=== PATIENT | female | born 1930 | race Caucasian/White ===

== ENCOUNTER → 2016-11-30 | Emergency (ER) | payer MEDICARE, BC ==
[~2016-11-30] MED LIST: ALEVE220 MG PO; ARTIFICIAL TEAR15 M2 OPHTH; ATIVAN 0.5MG0.5 MG PO; BUMETANIDE2 MG PO; CATAPRES0.1 MG PO; CELEXA40 MG PO; CITALOPRAM10 MG/5 ML; COREG12.5 MG PO; DELTASONE5 MG PO; ESTRACE42.5 GM VAG; EXELON1 EAC1 TRANS; KEFLEX500 MG PO; NAMENDA10 MG PO; NORCO 5-325 TA1 EACH PO; ROBITUSSIN DM120 ML PO; VESICARE5 MG; VITAMIN D1000 UNI1 PO; ZYLOPRIM100 MG PO
== END | disposition disaster alternative care site (69) ==
LOC: GAMB 09:40
DX: R55 Syncope and collapse (principal)

== ENCOUNTER 2017-03-09 23:27 | Emergency (ER) | payer MEDICARE, BC ==
--- NOTE | ~2017-03-09 | ER ---
PATIENT'S NAME: GONZALO MARRERO [facility] AGE: 86 Y [address] ROOM: [place] [address] LOCATION: [facility] ADMIT DATE: 03/09/2017 ER/Outpatient Report DISCHARGE DATE: 03/10/2017 FAMILY PHYSICIAN: Antonia Hood MD ATTENDING PHYSICIAN: Harshil Braun CHIEF COMPLAINT: Fall. HISTORY OF PRESENT ILLNESS: Ms. Marrero arrives by ambulance from [place]. She supposedly fell around 5 to 5:30 p.m. According to her daughter, she fell when trying to stand from her walker. She struck her left side kind of posteriorly as well as her head and in fact into the wall. She evidently did not lose consciousness. She refused transport at that time. However, throughout the evening she has become more and more painful and thus finally agreed for transportation. EMS was called and brought her in. She is complaining of right-sided pain. It is mostly in her shoulder and neck. No medications or interventions have been employed prior to arrival. PAST MEDICAL HISTORY: Documented on the record and reviewed by me. SOCIAL HISTORY: Documented on the record and reviewed by me. MEDICATIONS: Documented on the record and reviewed by me. ALLERGIES: DOCUMENTED ON THE RECORD AND REVIEWED BY ME. REVIEW OF SYSTEMS: All systems reviewed and are negative except as noted in the HPI, though the patient is a very poor historian. Collateral information from family was obtained as well. PHYSICAL EXAMINATION: VITAL SIGNS: Blood pressure 207/96, pulse is 60, respiratory rate is 16, temperature 98.0, SpO2 is 95% on room air. Pain appears to be 5/10. GENERAL: Age-appropriate female, in no obvious pain or distress. NEUROLOGIC: The patient is awake. GCS is 14. Confused on date. No focal deficits, however. HEENT: Normocephalic, atraumatic. Nontender to palpation. No crepitus or bogginess. Eyes are PERRL. The oropharynx is clear. PATIENT'S NAME: GONZALO MARRERO [facility] AGE: 86 Y [address] ROOM: [place] [address] LOCATION: [facility] ADMIT DATE: 03/09/2017 ER/Outpatient Report DISCHARGE DATE: 03/10/2017 FAMILY PHYSICIAN: Antonia Hood MD ATTENDING PHYSICIAN: Harshil Braun NECK: Supple with some tenderness in the C-spine region, poorly localizable. HEART: Regular rate and rhythm with no murmurs. LUNGS: Clear to auscultation bilaterally. Diffuse tenderness in the right upper chest wall, nonreproducible. ABDOMEN: Soft, nontender, and nondistended. No rebound or guarding. BACK: Back is normal to inspection. There is tenderness to palpation throughout the upper spine. No thoracic or lumbar spine tenderness. No CVA tenderness. EXTREMITIES: Right upper extremity is notable for shoulder impingement, but no focal abnormalities. Left upper extremity has some contusions at the elbow, no active bleeding; no deformities, tenderness, or pain. The lower extremities are grossly unremarkable for acute pathology. SKIN: Appears to be grossly intact other than a skin tear to the left elbow which is bandaged. LABORATORY DATA AND X-RAYS: Head CT and C-spine CT are negative. CT of the chest is notable for right first rib fracture and sternal fracture, possibly acute. No other mediastinal abnormalities. Urinalysis; leukocytes 500, nitrite positive, wbc's 50 to 100, rbc's 0 to 2, epithelials 2 to 5, bacteria many, moderate wbc clumps. CMS; electrolytes without abnormality. Creatinine 1.5. GFR is 33, baseline. No appreciable hepatobiliary abnormalities. CBC; white count of 16.2 with neutrophilia, hemoglobin is 12.1, platelets of 179. INR is 1. EKG; sinus rhythm, rate of 60 with normal intervals and left axis deviation. No significant abnormalities compared to prior EKG. Plain films of the right shoulder shows arthritis, no other abnormalities. Chest x-ray unremarkable per my review. IMPRESSION: 1. Fall. 2. Possibly acute versus subacute sternal and right first rib fractures with multiple healing old right-sided rib fractures. 3. Skin tear. 4. Urinary tract infection. EMERGENCY DEPARTMENT COURSE: The patient was seen and evaluated as above. Her daughter was available and collaborated the HPI. The patient's injury pattern on imaging does not fit with her mechanism. On physical exam, she is not particularly tender over the area in question for fracture of the sternum. The force required to provide this particular injury pattern is unlikely to be encountered in a ground level partial fall. I discussed this at length with the daughter. The patient is not in any acute pain right now. There is no evidence of other intrathoracic PATIENT'S NAME: GONZALO MARRERO [facility] AGE: 86 Y [address] ROOM: [place] [address] LOCATION: [facility] ADMIT DATE: 03/09/2017 ER/Outpatient Report DISCHARGE DATE: 03/10/2017 FAMILY PHYSICIAN: Antonia Hood MD ATTENDING PHYSICIAN: Harshil Braun. I explained that I do not think there is any utility for admission from that standpoint at this time and the daughter agrees. We will treat the UTI with Macrobid. Recommend close followup with PCP at this week. Return immediately if there is any new or concerning signs or symptoms. The patient remained with adequate pain control throughout her stay in the emergency department. All questions were answered, and the patient was discharged back to [place] under the care of her daughter. MD KADY MERAZ/jane /[id number] d: 03/10/1712 t: 03/15/17 1223, OUTPATIENT REPORT
[~2017-03-09 23:27] MED LIST changes: -ROBITUSSIN DM120 ML PO; -ZYLOPRIM100 MG PO
[2017-03-10 00:08] LABS: BASOPHIL % 0.2 %; EOSINOPHIL # 0.1 K/uL (0.0-0.5); EOSINOPHIL % 0.7 %; HEMATOCRIT 35.5 % (30.0-46.0); HEMOGLOBIN 12.1 g/dL (10.0-15.0); IMMATURE GRANULOCYTE # 0.1 K/uL (0.0-0.3); IMMATURE GRANULOCYTE % 0.9 %; LYMPHOCYTE # 1.7 K/uL (0.8-4.0); LYMPHOCYTE % 10.5 %; MCH 32.6 pg (27.0-34.0); MCHC 34.1 gm/dL (32.0-36.5); MCV 95.7 fl (83.0-98.0); MONOCYTE # 1.3 K/uL (0.0-1.0); MONOCYTE % 7.8 %; MPV 9.6 fl (9.4-12.4); NEUTROPHIL % 79.9 %; NRBC % 0 /100WBC (0-0.00); PLATELET COUNT 179 K/uL (150-450); RBC 3.71 M/uL (3.00-5.00); RDW-CV 13.2 % (11.9-14.6)
[2017-03-10 00:09] LABS: WBC 16.2 K/uL (4.0-11.0)
[2017-03-10 00:16] LABS: BILIRUBIN URINE NEGATIVE (NEGATIVE); BLOOD URINE 10 /UL (NEGATIVE); COLOR URINE YELLOW (YELLOW); GLUCOSE URINE NEGATIVE (NEGATIVE); KETONE URINE NEGATIVE (NEGATIVE); LEUKOCYTES URINE 500 /UL (NEGATIVE); NITRITE URINE POSITIVE (NEGATIVE); PROTEIN URINE NEGATIVE (NEGATIVE); TURBIDITY URINE 1+ (CLEAR); UROBILINOGEN URINE NORMAL (NORMAL)
[2017-03-10 00:18] LABS: INR - (THERAPEUTIC) 1.01 (0.92-1.07); PROTIME 10.6 SECONDS (9.8-11.4); PTT 27 SECONDS (25-32)
[2017-03-10 00:23] LABS: ALBUMIN 3.4 gm/dL (3.5-5.0); ANION GAP 10.8 (10.0-19.0); CALCIUM 8.6 mg/dL (8.5-10.5); CREATININE 1.5 mg/dL (0.5-1.1); POTASSIUM 3.8 mMol/L (3.7-5.1); TOTAL BILIRUBIN 0.3 mg/dL (0.0-1.5); TOTAL PROTEIN 7.1 g/dL (6.0-8.4)
[2017-03-10 00:25] LABS: RBC URINE 0-2 #/HPF (NEGATIVE); WBC URINE 50-100 #/HPF (NEGATIVE)
[2017-03-10 00:26] LABS: BACTERIA URINE MANY (NEGATIVE); MUCUS URINE 1+ (NEGATIVE); WBC CLUMPS URINE MODERATE (NEGATIVE)
[2017-05-06] MEDS ORDERED: ROBITUSSIN DM120 ML PO (14:38)
[2017-05-11] MEDS ORDERED: ZYLOPRIM100 MG PO (13:45)
== END 2017-03-10 02:38 | disposition disaster alternative care site (69) ==
LOC: GACC 23:27
PROVIDERS: Emergency Medicine
DX: S51.012A Laceration without foreign body of left elbow, initial encounter (principal); S22.31XD Fracture of one rib, right side, subsequent encounter for fracture with routine healing; I12.9 Hypertensive chronic kidney disease with stage 1 through stage 4 chronic kidney disease, or unspecified chronic kidney disease; N39.0 Urinary tract infection, site not specified; K21.9 Gastro-esophageal reflux disease without esophagitis; E78.5 Hyperlipidemia, unspecified; M19.90 Unspecified osteoarthritis, unspecified site; N18.9 Chronic kidney disease, unspecified; G30.9 Alzheimer's disease, unspecified; Z88.5 Allergy status to narcotic agent; F02.80 Dementia in other diseases classified elsewhere, unspecified severity, without behavioral disturbance, psychotic disturbance, mood disturbance, and anxiety; Z98.890 Other specified postprocedural states; Z79.899 Other long term (current) drug therapy; W18.09XA Striking against other object with subsequent fall, initial encounter

== ENCOUNTER → 2017-03-09 | Outpatient (CLI) | payer MEDICARE, BC | END | disposition disaster alternative care site (69) | LOC: GAMB 23:12 | DX: S49.91XA Unspecified injury of right shoulder and upper arm, initial encounter (principal); M25.611 Stiffness of right shoulder, not elsewhere classified; M25.511 Pain in right shoulder; R07.9 Chest pain, unspecified; W19.XXXA Unspecified fall, initial encounter | CPT/HCPCS: A0425; A0429 ==

== ENCOUNTER → 2017-03-09 | Emergency (ER) | payer MEDICARE, BC | END | disposition disaster alternative care site (69) | LOC: GAMB 17:16 | DX: R07.89 Other chest pain (principal); S51.012A Laceration without foreign body of left elbow, initial encounter; M25.522 Pain in left elbow; W19.XXXA Unspecified fall, initial encounter ==

== ENCOUNTER 2017-05-03 19:03 | Emergency (ER) | payer MEDICARE, BC ==
--- NOTE | ~2017-05-03 | ER ---
PATIENT'S NAME: GONZALO CARVER [facility] AGE: 87 Y [address] ROOM: [place] [address] LOCATION: [facility] ADMIT DATE: 05/03/2017 ER/Outpatient Report DISCHARGE DATE: 05/03/2017 FAMILY PHYSICIAN: Antonia Hood MD ATTENDING PHYSICIAN: Jairo Castellon Admission date and time documented on the medical record. I saw the patient at 1915 hours. CHIEF COMPLAINT: Ground level fall. No loss of consciousness. HISTORY OF PRESENT ILLNESS: This patient is an 87-year-old female who was walking, stepped back, and she thinks she tripped and suffered a ground level fall. She hit kind of the left side of her head in the posterior parietal occipital area and hit her left shoulder. She has pain in her head, left posterior parietal occipital area and her left shoulder. The patient was brought into the emergency room by paramedics via ambulance for evaluation. The patient did not lose consciousness. She had a pretty good recall about the whole incident. The patient did not have any seizure activity. No incontinence of stool or urine. No chest pain or shortness of breath. No abdominal pain, nausea, vomiting, diarrhea. No urinary symptomatology. Really at this point she is not having much of a headache, just some localized pain in the spot area of her scalp. There is no laceration, contusion, swelling, or abrasion. No eyes, ears, nose, throat, neck, spine pain. No recent cold, coughs, flus, fever, chills, or sweats. Denies being lightheaded or dizzy. No syncope. Other than the shoulder, no other joint or muscle swelling, redness, or pain. No skin eruptions or rash. Does have some mild dementia. No endocrine problems. No psych issues. HOME MEDICATIONS: See attached medication list. ALLERGIES: PERCOCET, MORPHINE SULFATE, CODEINE, OXYCODONE, HYDROCODONE, ACETAMINOPHEN. SOCIAL HISTORY: Nonsmoker. Occasional intake of alcohol. SIGNIFICANT PAST MEDICAL HISTORY: Hypertension, dementia, frequent falls, gastroesophageal reflux, chronic kidney disease, dyslipidemia, restless legs syndrome, lower extremity skin ulcer. PATIENT'S NAME: GONZALO CARVER [facility] AGE: 87 Y [address] 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 REVIEW OF SYSTEMS: All systems reviewed by me are negative with the exception of those discussed in the history of present illness. PHYSICAL EXAMINATION: VITAL SIGNS: Temperature 99.2, pulse 70, respirations 18, blood pressure 184/90, O2 saturation on room air was 98%. HEENT: Head, normocephalic. No abrasion, contusion, laceration, or swelling of the scalp or face. She does have a little bit of tenderness in the posterior left parietal occipital area where she hit the floor. Eyes; extraocular muscles intact. PERRL. Ears, clear TMs bilaterally. Nose, clear. Throat; clear. Mucous membranes moist. Teeth and jaw intact. NECK: Full range of motion. No tenderness. No thyromegaly or cervical adenopathy. SPINE: Nontender. No deformity. LUNGS: Clear. Good air flow. No rales, rhonchi, or wheezes. HEART: Regular. Pulses are palpable. No chest wall or ribcage pain to palpation. No deformity. ABDOMEN: Soft, nondistended, nontender. Good bowel tones. No organomegaly or abnormal masses palpable. No CVA tenderness. EXTREMITIES: No peripheral edema, cyanosis, or deformity. NEURO: Cranial nerves appeared to be intact. No lateralizing signs. The patient is awake, alert, responsive. Motor and sensory intact. SKIN: Clear. No skin eruptions or rash. LABORATORY DATA AND X-RAYS: CT scan of the head showed no intracranial bleed, midline shift, mass effect, or skull fracture. CT scan of the cervical spine showed no acute fracture or subluxation. She does have a manubrial sternal comminuted fracture that is old. There was some more displacement on the CT scan tonight. All CT scans were read by Radiology, see dictated transcribed reports. Left shoulder plain x-ray showed no fracture, dislocation, or separation. We will review x-ray with the radiologist. IMPRESSION: Ground-level fall without loss of consciousness. The patient has a bruised left shoulder and mild contusion to her left posterior parietal occipital scalp. No other injuries or abnormalities found on physical exam or x-ray study results. PLAN: The patient was discharged back to [facility]. Observation. PATIENT'S NAME: GONZALO CARVER [facility] AGE: 87 Y [address] ROOM: [place], [place] [address] LOCATION: [facility] ADMIT DATE: 05/03/2017 ER/Outpatient Report DISCHARGE DATE: 05/03/2017 FAMILY PHYSICIAN: Antonia Hood MD ATTENDING PHYSICIAN: Jairo Castellon Activity as tolerated. Continue present home medications and care. Follow up with personal physician as needed. I did discuss this with the patient. MD TESFAYE SUN/modl /[id number] d: 05/04/17 0035 t: 05/04/17 1820, OUTPATIENT REPORT
[~2017-05-03 19:03] MED LIST changes: -ROBITUSSIN DM120 ML PO; -ZYLOPRIM100 MG PO
[2017-05-06] MEDS ORDERED: ROBITUSSIN DM120 ML PO (14:38)
[2017-05-11] MEDS ORDERED: ZYLOPRIM100 MG PO (13:45)
== END 2017-05-03 20:56 | disposition disaster alternative care site (69) ==
LOC: GACC 19:03
DX: S00.03XA Contusion of scalp, initial encounter (principal); S40.012A Contusion of left shoulder, initial encounter; I12.9 Hypertensive chronic kidney disease with stage 1 through stage 4 chronic kidney disease, or unspecified chronic kidney disease; K21.9 Gastro-esophageal reflux disease without esophagitis; N18.9 Chronic kidney disease, unspecified; E78.5 Hyperlipidemia, unspecified; F03.90 Unspecified dementia, unspecified severity, without behavioral disturbance, psychotic disturbance, mood disturbance, and anxiety; Z88.5 Allergy status to narcotic agent; Z88.8 Allergy status to other drugs, medicaments and biological substances; Z98.890 Other specified postprocedural states; W01.0XXA Fall on same level from slipping, tripping and stumbling without subsequent striking against object, initial encounter

== ENCOUNTER → 2017-05-03 | Outpatient (CLI) | payer MEDICARE, BC ==
[~2017-05-03] MED LIST changes: +ROBITUSSIN DM120 ML PO; +ZYLOPRIM100 MG PO
== END | disposition disaster alternative care site (69) ==
LOC: GAMB 18:41
DX: S49.92XA Unspecified injury of left shoulder and upper arm, initial encounter (principal); R51 Headache; M25.552 Pain in left hip; I10 Essential (primary) hypertension; W01.0XXA Fall on same level from slipping, tripping and stumbling without subsequent striking against object, initial encounter; Y93.01 Activity, walking, marching and hiking; Y92.89 Other specified places as the place of occurrence of the external cause; Y99.9 Unspecified external cause status; Z88.8 Allergy status to other drugs, medicaments and biological substances
CPT/HCPCS: A0425; A0429

== ENCOUNTER → 2017-05-15 | Outpatient (CLI) | payer MEDICARE, BC ==
[~2017-05-15] MED LIST changes: -BUMETANIDE2 MG PO; +BUMEX1 MG PO; +PROTONIX40 MG PO; +ROBITUSSIN DM120 ML PO; +ZYLOPRIM100 MG PO
== END | disposition disaster alternative care site (69) ==
LOC: GAMB 01:30
DX: R53.1 Weakness (principal); I10 Essential (primary) hypertension; R11.10 Vomiting, unspecified; Z79.52 Long term (current) use of systemic steroids; Z79.899 Other long term (current) drug therapy; Z88.6 Allergy status to analgesic agent